=== PATIENT | female | born 1990 | race Caucasian/White ===

== ENCOUNTER 2018-04-10 19:46 | Emergency (ER) | payer OTHER ==
[~2018-04-10] VITALS: Ht 170.2 cm; Wt 65.8 kg
[2018-04-10 20:15] VITALS: BP 121/66
[2018-04-10] MEDS ORDERED: TYLENOL EXTRA500 MG ORAL (20:52)
[2018-04-10 20:55] VITALS: BP 125/63
--- NOTE | 2018-04-11 14:00 | Emergency Room Report ---
History of Present Illness General Chief Complaint: Headache Source: Patient Present Illness HPI 27-year-old female presents to ED for evaluation. 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 Denies LOC. States she felt dazed for a few seconds. Denies any amnesia regarding the events. Denies any vomiting. Denies any photophobia or blurry vision. Denies any neck pain. Pain is dull, 5 out of 10, nonradiating. No other aggravating relieving factors. Denies any other associated symptoms Allergies: Coded Allergies: No Known Allergies (Unverified , 04/10/18) Patient History Past Medical History: none Past Surgical History: none Pertinent Family History: none Social History: Denies: smoking, alcohol use, drug use Last Menstrual Period: 03/28/18 Now: No - Nuva ring 04/04/18 Immunizations: UTD Reviewed Nursing Documentation: PMH: Agreed; PSxH: Agreed Nursing Documentation-PMH Past Medical History: No Stated History Review of Systems All Other Systems: negative except mentioned in HPI Physical Exam Vital Signs Date Time Temp Pulse Resp B/P (MAP) Pulse Ox O2 Delivery O2 Flow Rate FiO2 04/10/18 20:07 97.9 74 16 125/63 96 Room Air 97.9 Sp02 EP Interpretation: reviewed, normal General Appearance: no apparent distress, alert, GCS 15, non-toxic Head: normocephalic Eyes: bilateral eye normal inspection, bilateral eye PERRL ENT: hearing grossly normal, normal pharynx, no angioedema, normal voice, TMs + canals normal, other - no pyle sign Neck: full range of motion, no bony tend, supple/symm/no masses Respiratory: normal inspection Cardiovascular #1: normal inspection Gastrointestinal: normal inspection Rectal: deferred Genitourinary: no CVA tenderness Musculoskeletal: normal inspection Neurologic: alert, oriented x3, responsive, motor strength/tone normal, sensory intact, speech normal Psychiatric: judgement/insight normal, memory normal, mood/affect normal, no suicidal/homicidal ideation Skin: normal color, no rash, warm/dry, well hydrated Lymphatic: no adenopathy Medical Decision Making Diagnostic Impression: Primary Impression: Head injury Qualified Codes: S09.90XA - Unspecified injury of head, initial encounter ER Course Hospital Course 27-year-old female presents ED complaining of headache s/p hit by metal bar. no LOC. Differential diagnoses include: cspine injury, muscle strain, nasal bone Fx, concussion Clinical course Patient placed on stretcher. After initial history, my physical exam reveals a female in no acute distress. There is no evidence of injury forehead. no maxillary tenderness or crepitus. There is no C-spine tenderness. My suspicion for any intracranial injury or C-spine injury is low. per [place] head CT rules and nexus criteria patient does not require imaging. patient agrees with plan. given tylenol in ED for pain. patient safe for discharge Diagnosis - head injury Stable and discharged to home with Rx Tylenol. Followup with PMD. Return to ED if symptoms recur or worsen Last Vital Signs Date Time Temp Pulse Resp B/P (MAP) Pulse Ox O2 Delivery O2 Flow Rate FiO2 04/10/18 20:55 36.21804 16 125/63 96 Room Air 208.2 04/10/18 20:15 68 Status: improved Disposition: HOME, SELF-CARE Condition: Stable Scripts Acetaminophen* (TYLENOL EXTRA STRENGTH*) 500 Mg Tablet 500 MG ORAL Q8H PRN for Prn Headache/Temp > 101, #30 TAB 0 Refills Prov: Hector Srinivasan MD 04/10/18 Referrals: NOT CHOSEN IPA/,REFERRING (PCP) Departure Forms: Return to Work Return to Work Date: Apr 12, 2018 Work Restrictions: None Patient Instructions: Head Injury, Adult Hector Srinivasan MD Apr 11, 2018 14:00
== END 2018-04-10 20:55 | disposition home or self-care (01) ==
LOC: EMR 20:25
DX: S09.90XA Unspecified injury of head, initial encounter (principal); W45.8XXA Other foreign body or object entering through skin, initial encounter; Y92.89 Other specified places as the place of occurrence of the external cause; R51 Headache
CPT/HCPCS: 99283